=== PATIENT | male | born 1980 | race Caucasian/White ===

== ENCOUNTER → 2020-09-02 | Outpatient (CLI) | payer OTHER ==
[~2020-09-02] MED LIST: CATHETER FLUSH 10 ML SYR IV PRN; REGADENOSON 0.4 MG/5 ML SYR (LEXISCAN) IV ONE
[2020-09-02 13:08] VITALS: BP 145/80
--- NOTE | 2020-09-03 13:19 | STRESS TEST ---
DATE OF SERVICE: 09/02/2020 RESTING AND POST REGADENOSON TECHNETIUM-99M TETROFOSMIN SPECT CT IMAGING ORDERING PHYSICIAN: Dr. Hoffman. CLINICAL DIAGNOSIS: Chest discomfort. Baseline images were carried out after injection of 10.83 mCi of technetium-99m Tetrofosmin. This was followed by 0.4 mg regadenoson and 32.1 mCi of technetium-99m Tetrofosmin. The electrocardiogram showed sinus rhythm with a paced ventricular rhythm. The patient tolerated the procedure well. Review of images at rest and following stress indicates a small to moderate basal inferior perfusion defect that appears transient. Gated images show normal global left ventricular systolic function with normal regional wall motion. Left ventricular ejection fraction is calculated to 63%. Left ventricular end diastolic volume is 132 mL. TID is absent (1.12). CONCLUSIONS: 1. This study is suggestive of a small to moderate amount of basal inferior ischemia. 2. Well preserved global left ventricular systolic function with ejection fraction of 63% without significant regional wall motion abnormality. 3. Mild to moderate cardiomegaly. Job ID: [id number] DocumentID: [id number] Dictated Date: 09/03/2020 09:48:42 Welder Assistant Date: 09/03/2020 13:18:56 Dictated By: DANIELLE HOFFMAN MD, MA, FACP, FACC,
== END ==
LOC: CARD 11:29
PROVIDERS: ATTEND Internal Medicine Cardiovascular Disease
DX: I51.7 Cardiomegaly (principal)
CPT/HCPCS: 78452; 93017; 93306; A9502

== ENCOUNTER 2020-10-28 07:28 | Emergency (ER) | payer OTHER ==
[~2020-10-28] VITALS: Ht 183 cm; Wt 192.0 kg
--- NOTE | 2020-10-28 07:43 | ED EENT ---
History of Present Illness General Chief Complaint: General Problems/Pain Stated Complaint: SORE THROAT, BODY ACHES History of Present Illness Date Seen by Provider: Oct 28, 2020 Time Seen by Provider: 07:43 Initial Comments 40-year-old male presents with generalized body aches, sore throat. Patient reports that his sore throat started about 2 weeks ago. He was seen in walk-in clinic at [facility] and started on Augmentin. Reports that now he is discussing generalized body aches that his body hurts all over and continues to have a sore throat and pain with swallowing. He denies any known fevers. Has no nausea vomiting diarrhea cough shortness of breath. Allergies and Home Medications Allergies Coded Allergies: No Allergy Information Available (Unverified , 09/02/20) Patient Home Medication List Home Medication List Reviewed: Yes Review of Systems Review of Systems Constitutional: No chills, No fever; malaise Ears: No Symptoms Reported Nose: no symptoms reported Mouth: see HPI Throat: pain, painful swallowing Respiratory: No cough, No short of breath Cardiovascular: No chest pain, No palpitations Gastrointestinal: No abdominal pain, No vomiting Musculoskeletal: see HPI Skin: no symptoms reported Neurological: No Symptoms Reported Hematologic/Lymphatic: No Symptoms Reported Immunological/Allergic: no symptoms reported Past Vaujjgy-Qsevbp-Qcauma Hx Past Med/Social Hx: Reviewed Nursing Past Med/Soc Hx Physical Exam Vital Signs Vital Signs - First Documented 10/28/20 07:39 Temp 37.2 Pulse 101 Resp 22 B/P (MAP) 120/85 (97) Pulse Ox 96 O2 Delivery Room Air Height, Weight, BMI Height: '" Weight: lbs. oz. kg; BMI Method: General Appearance: mild distress, obese Eyes: bilateral eye normal inspection Mouth/Throat: No tonsillar swelling; other (Posterior pharynx erythema) Cardiovascular: normal peripheral pulses, regular rate, rhythm Respiratory: lungs clear, normal breath sounds, no respiratory distress Gastrointestinal: non tender, soft Neurologic/Psychiatric: alert, normal mood/affect, oriented x 3 Skin: normal color, warm/dry Progress/Results/Core Measures Results/Orders Lab Results Laboratory Tests Test 10/28/20 07:45 10/28/20 08:15 Range/Units Coronavirus 2019 (JOSÉ MANUEL) Negative Negative Group A Streptococcus Screen NEGATIVE NEGATIVE White Blood Count 10.2 4.3-11.0 10^3/uL Red Blood Count 4.33 4.30-5.52 10^6/uL Hemoglobin 13.3 13.3-17.7 g/dL Hematocrit 40 40-54 % Mean Corpuscular Volume 92 80-99 fL Mean Corpuscular Hemoglobin 31 25-34 pg Mean Corpuscular Hemoglobin Concent 33 32-36 g/dL Red Cell Distribution Width 13.4 10.0-14.5 % Platelet Count 225 130-400 10^3/uL Mean Platelet Volume 10.0 9.0-12.2 fL Immature Granulocyte % (Auto) 0 % Neutrophils (%) (Auto) 93 H 42-75 % Lymphocytes (%) (Auto) 5 L 12-44 % Monocytes (%) (Auto) 2 0-12 % Eosinophils (%) (Auto) 0 0-10 % Basophils (%) (Auto) 0 0-10 % Neutrophils # (Auto) 9.4 H 1.8-7.8 10^3/uL Lymphocytes # (Auto) 0.5 L 1.0-4.0 10^3/uL Monocytes # (Auto) 0.2 0.0-1.0 10^3/uL Eosinophils # (Auto) 0.0 0.0-0.3 10^3/uL Basophils # (Auto) 0.0 0.0-0.1 10^3/uL Immature Granulocyte # (Auto) 0.0 0.0-0.1 10^3/uL Neutrophils % (Manual) 79 % Lymphocytes % (Manual) 8 % Monocytes % (Manual) 2 % Eosinophils % (Manual) 0 % Basophils % (Manual) 0 % Band Neutrophils 11 % Blood Morphology Comment NORMAL Sodium Level 136 135-145 MMOL/L Potassium Level 3.6 3.6-5.0 MMOL/L Chloride Level 102 98-107 MMOL/L Carbon Dioxide Level 21 21-32 MMOL/L Anion Gap 13 5-14 MMOL/L Blood Urea Nitrogen 10 7-18 MG/DL Creatinine 0.83 0.60-1.30 MG/DL Estimat Glomerular Filtration Rate > 60 BUN/Creatinine Ratio 12 Glucose Level 201 H 70-105 MG/DL Calcium Level 8.9 8.5-10.1 MG/DL Corrected Calcium 9.4 8.5-10.1 MG/DL Total Bilirubin 1.2 H 0.1-1.0 MG/DL Aspartate Amino Transf (AST/SGOT) 11 5-34 U/L Alanine Aminotransferase (ALT/SGPT) 26 0-55 U/L Alkaline Phosphatase 57 40-136 U/L Total Protein 7.2 6.4-8.2 GM/DL Albumin 3.4 3.2-4.5 GM/DL Monoscreen NEGATIVE NEGATIVE Micro Results Microbiology 10/28/20 Influenza Types A,B Antigen (CHELLY) - Final, Complete My Orders Orders - RICHMOND CLEMENTS DO Cbc With Automated Diff (10/28/20 07:43) Comprehensive Metabolic Panel (10/28/20 07:43) Procalcitonin (Pct) (10/28/20 07:43) Rapid Strep A Screen (10/28/20 07:43) Influenza A And B Antigens (10/28/20 07:43) Covid 19 Inhouse Test (10/28/20 07:43) Monotest (10/28/20 07:43) Manual Differential (10/28/20 08:15) Dexamethasone Injection (Decadron Inje (10/28/20 08:45) Medications Given in ED Current Medications Medications Dose Ordered Sig/Carly Route Start Time Stop Time Status Last Admin Dose Admin Dexamethasone Sodium Phosphate 10 mg ONCE ONCE IV 10/28/20 08:45 10/28/20 08:46 DC 10/28/20 08:59 10 MG Vital Signs/I&O 10/28/20 07:39 Temp 37.2 Pulse 101 Resp 22 B/P (MAP) 120/85 (97) Pulse Ox 96 O2 Delivery Room Air Progress Progress Note : Progress Note Patient with negative white count, strep, Covid, mono and influenza. Likely a viral pharyngitis from another etiology. Patient was given 10 of dexamethasone since been gone for 2 weeks. Recommended salt water gargles. Use [id number] medications such as Tylenol or ibuprofen. Patient stable and discharged Departure Impression Primary Impression: Viral pharyngitis Disposition: 01 HOME, SELF-CARE Condition: Stable Departure-Patient Inst. Referrals: NO,LOCAL PHYSICIAN (PCP/Family) Primary Care Physician Patient Instructions: Viral Pharyngitis (DC) Add. Discharge Instructions: Salt water gargle Tylenol or ibuprofen as needed Drink plenty of fluids Follow-up with your primary care provider if symptoms have not improved in 5 to 7 days for further evaluation and test All discharge instructions reviewed with patient and/or family. Voiced understanding. RICHMOND CLEMENTS DO Oct 28, 2020 07:43
[2020-10-28 08:25] LABS: BASOPHILS % (AUTO) 0 % (0-10); EOSINOPHILS % (AUTO) 0 % (0-10); HEMATOCRIT 40 % (40-54); HEMOGLOBIN 13.3 g/dL (13.3-17.7); LYMPHOCYTES # (AUTO) 0.5 10^3/uL (1.0-4.0); LYMPHOCYTES % (AUTO) 5 % (12-44); MEAN CORPUSCULAR HEMOGLOBIN 31 pg (25-34); MEAN CORPUSCULAR HGB CONC 33 g/dL (32-36); MEAN CORPUSCULAR VOLUME 92 fL (80-99); MONOCYTES # (AUTO) 0.2 10^3/uL (0.0-1.0); MONOCYTES % (AUTO) 2 % (0-12); NEUTROPHILS # (AUTO) 9.4 10^3/uL (1.8-7.8); NEUTROPHILS % (AUTO) 93 % (42-75); PLATELET COUNT 225 10^3/uL (130-400); WHITE BLOOD COUNT 10.2 10^3/uL (4.3-11.0)
[2020-10-28 08:34] LABS: ALBUMIN 3.4 GM/DL (3.2-4.5)
[2020-10-28 08:35] LABS: CHLORIDE 102 MMOL/L (98-107); POTASSIUM 3.6 MMOL/L (3.6-5.0); SODIUM 136 MMOL/L (135-145)
[2020-10-28 08:36] LABS: CALCIUM 8.9 MG/DL (8.5-10.1)
[2020-10-28 08:37] LABS: GLUCOSE 201 MG/DL (70-105); TOTAL PROTEIN 7.2 GM/DL (6.4-8.2)
[2020-10-28 08:38] LABS: CARBON DIOXIDE 21 MMOL/L (21-32)
[2020-10-28 08:39] LABS: BILIRUBIN,TOTAL 1.2 MG/DL (0.1-1.0)
[2020-10-28 08:40] LABS: ALKALINE PHOSPHATASE 57 U/L (40-136)
[2020-10-28 08:41] LABS: CREATININE SERUM 0.83 MG/DL (0.60-1.30); GFR ESTIMATED > 60
[2020-10-28 08:42] LABS: BUN/CREATININE RATIO 12
[2020-10-28 08:43] LABS: ALANINE AMINOTRANSFERASE 26 U/L (0-55)
[2020-10-28 08:50] LABS: BAND NEUTROPHILS 11 %; BASOPHILS % (MANUAL) 0 %; EOSINOPHILS % (MANUAL) 0 %; LYMPHOCYTES % (MANUAL) 8 %; MONOCYTES % (MANUAL) 2 %; NEUTROPHILS % (MANUAL) 79 %; RBC MORPH NORMAL
[2020-10-28 09:21] VITALS: BP 111/69
== END 2020-10-28 09:21 | disposition home or self-care (01) ==
LOC: EDUNIT# 07:28 → ER 07:30
DX: J02.8 Acute pharyngitis due to other specified organisms (principal); E66.9 Obesity, unspecified; Z20.822 Contact with and (suspected) exposure to COVID-19
CPT/HCPCS: 80053; 84145; 85007; 85027; 86308; 87430; 87804; 99284; U0002; 36415; 87635